=== PATIENT | female | born 1970 | race Caucasian/White ===

== ENCOUNTER → 2024-01-27 07:22 | Outpatient (REF) | payer BC, SELFPAY | LOC: HWWDC 07:22 | PROVIDERS: ATTENDING PHYSICIAN Physician Assistant; REFERRING PHYSICIAN Obstetrics & Gynecology Gynecology | DX: Z12.31 Encounter for screening mammogram for malignant neoplasm of breast (principal) | CPT/HCPCS: 77063; 77067 ==

== ENCOUNTER 2024-07-14 19:49 | Emergency (ER) | payer BC, SELFPAY ==
[2024-07-14 19:57] VITALS: BP 122/61
--- NOTE | 2024-07-14 20:47 | ED.GENMED ---
History of Present Illness
General
Chief Complaint: Fever
Source: patient
Exam Limitations: none
Time Seen by Provider: 07/14/24 20:39
History of Present Illness
History of Present Illness:
This is a 54 year old female that comes in with c/o fever. States that this started last evening after the debate. States that today she had a fever of 104 and this caused her to panic. States that she took Ibuprofen but did not wait to see if it
would work. States that she did this 1 hour ago and know she feels better. States that she is also having diarrhea. States that she had fever with chills, headache, dizziness and some abd burning. Denies any chest pain, SOB, cough, nausea, vomiting,
urinary burning.
Past History
Past History
ED Past Medical History: Hypercholesterolemia and Other (ear infections, Ulcers)
ED Past Surgical History: Other (Rectal abscess drainage)
Social History
Tobacco: Non-smoker
Alcohol: Occasional
Drug: None
Personal:
Living: with family
Employment: Employed
Family History
Family History: Other (Noncontributory)
Review of Systems
Review of Systems
All Other Systems: ROS reviewed and negative except as documented in HPI and ROS
Constitutional: Reports fever and chills
EENT: Reports no symptoms
Respiratory: Denies cough or trouble breathing
Cardiac: Reports no symptoms; Denies chest pain
ABD/GI: Reports abdominal pain and diarrhea; Denies nausea or vomiting
: Reports no symptoms; Denies dysuria, frequency or urgency
Musculoskeletal: Reports no symptoms
Skin: Reports no symptoms
Neurological: Reports no symptoms
Psychiatric: Reports no symptoms
Phy Exam
General Physical Exam
General Presentation: well appearing and no apparent distress
General age: appears stated age
General Skin: warm and dry
General Habitus: normal
General Mental: alert
General Hydration: appears well hydrated
ENT Exam
ENT Exam: TM's normal, pharynx normal and neck supple
Eye Exam
Eye Exam: EOMI
Cardiovascular Exam
Cardiovascular Exam: regular rate/rhythm, no edema, no murmur and normal peripheral pulses
Pulmonary Exam
Pulmonary Exam: lungs clear, no respiratory distress, no rales, chest non tender, no crackles, no rhonchi, no wheezing and no cough
Gastrointestinal Exam
Gastrointestinal Exam: normal bowel sounds, non tender, soft, no organomegaly, no pulsatile mass and non distended
Musculoskeletal Exam
Musculoskeletal Exam: full ROM
Skin Exam
Skin Exam: normal color, warm/dry, no rash and no petechia
Course
Vital Signs
Initial and Last Documented VS:
Initial Vital Signs
Temp Pulse Resp BP Pulse Ox
102.8 F H 88 20 122/61 95
07/14/24 19:57 07/14/24 19:57 07/14/24 19:57 07/14/24 19:57 07/14/24 19:57
Last Documented Vital Signs
Temp Pulse Resp BP Pulse Ox
98.4 F 88 20 122/61 95
07/14/24 20:39 07/14/24 19:57 07/14/24 19:57 07/14/24 19:57 07/14/24 19:57
MDM/Problems Addressed
Differential Diagnosis Includes:
Viral syndrome
MDM/Problems Addressed:
This is a 54 year old female that comes in with c/o fever. States that her temp was 104 and she got scarred. States that she did take Ibuprofen and now she is feeling better. States that she doesn't want anything more done and wants to go home.
States that she will follow up with the family doctor. Return with any concerns.
Chronic conditions affecting care:
NA
Acute Exacerbation and/or Progression of Chronic Illness:
NA
*Pulse Oximetry
Patient hypoxic: no
*EKG
Interpreted by ED Provider?: NA
Rate: EKG- N/A
*Electrical Tryout Person Interpretation
Rate: Electrical Tryout Person- N/A
*Critical Care Note
Total Time (30-74mins, 75-104mins- exclusive of procedures): Not Applicable
ED Attending Note
-
Portions of this chart may have been created with voice recognition software.� Occasional wrong word or��sound alike� substitutions may have occurred due to the inherent limitations of voice recognition software.
Discharge Plan
Departure
Patient Disposition: Home (Routine Discharge)
Date of Disposition: 07/14/24
Time of Disposition: 20:54
Patient with high blood pressure during this ER visit?: No
Condition: Good
Covid-19: Not Applicable
Discharge Problem:
Fever
Instructions: Fever, Adult (DC)
Prescriptions:
No Action
ibuprofen 600 MG tablet
600 mg PO Q6 PRN (Reason: pain) Qty: 20 0RF
multivitamin Tablet
1 tab PO DAILY
Activity Restrictions/Additional Instructions:
As discussed you have decided to not have any labs or other evaluation. Please follow up with the family doctor. RETURN WITH ANY CONCERNS.
Interventions
Interventions:
*Risk Screen - Suicide Last Done: 07/14/24 19:52
*General Assessment Last Done: 07/14/24 19:57
*Neglect/Abuse Screening Last Done: 07/14/24 19:57
Discharge Date and Time
Print Language: LAO
== END 2024-07-14 21:08 | disposition home or self-care (01) ==
LOC: EMR 19:49
PROVIDERS: EMERGENCY PHYSICIAN Emergency Medicine
DX: R50.9 Fever, unspecified (principal); E78.00 Pure hypercholesterolemia, unspecified
CPT/HCPCS: 99282

== ENCOUNTER → 2024-08-18 06:17 | Day surgery (SDC) | payer BC, SELFPAY | LOC: GI 06:17 | PROVIDERS: ATTENDING PHYSICIAN Surgery | DX: Z12.11 Encounter for screening for malignant neoplasm of colon (principal); Z86.0100 Personal history of colon polyps, unspecified; D12.3 Benign neoplasm of transverse colon; K64.9 Unspecified hemorrhoids | CPT/HCPCS: 45380; 88305 ==

== ENCOUNTER → 2025-02-02 08:13 | Outpatient (REF) | payer BC, SELFPAY | LOC: WDC 08:13 | PROVIDERS: ATTENDING PHYSICIAN Obstetrics & Gynecology Gynecology | DX: Z12.31 Encounter for screening mammogram for malignant neoplasm of breast (principal) | CPT/HCPCS: 77063; 77067 ==